=== PATIENT | female | born 1965 | race Caucasian/White ===

== ENCOUNTER 2017-03-30 14:14 | Emergency (ER) | payer BC ==
[~2017-03-30] VITALS: Ht 154.9 cm; Wt 73.2 kg
[2017-03-30 15:19] LABS: HEMATOCRIT 41.4 % (36.0-46.0); HEMOGLOBIN 13.7 G/DL (11.9-15.5); MCH 31.1 PG (29.0-34.0); MCHC 33.1 G/DL (30.0-36.0); MCV 94.1 FL (83-99); PLATELET COUNT 671 K/uL (156-360); RBC DIS.WIDTH-CV 14.1 % (11.8-14.6); RBC DIS.WIDTH-SD 49.2 % (39-53); WHITE BLOOD COUNT 13.8 K/uL (4.1-10.2)
[2017-03-30 15:31] LABS: CHLORIDE 107 mEq/L (99-109); POTASSIUM 4.8 mEq/L (3.7-5.4); SODIUM 142 mEq/L (136-147)
[2017-03-30 15:33] LABS: GLUCOSE 179 mg/dL (70-99)
[2017-03-30 15:36] LABS: CREATININE 0.8 mg/dL (0.6-1.3); GFR ESTIMATE (CALCULATED) > 59 mL/min/
[2017-03-30 15:37] LABS: UREA NITROGEN (BUN) 16 mg/dL (9-23)
[2017-03-30 15:40] LABS: TROP-I INTERPRETATION NEGATIVE; TROPONIN-I < 0.01 ng/mL (0.0-0.30)
[2017-03-30 17:11] LABS: ALBUMIN 4.2 g/dL (3.2-4.8)
[2017-03-30 17:14] LABS: TOTAL PROTEIN 7.6 g/dL (6.4-8.3)
[2017-03-30 17:16] LABS: TOTAL BILIRUBIN 0.2 mg/dL (0.0-1.0)
[2017-03-30 17:17] LABS: ALKALINE PHOSPHATASE 73 IU/L (3-129)
[2017-03-30 17:20] LABS: ALT (GPT) 20 IU/L (3-49); AST (GOT) 21 IU/L (2-34); DIRECT BILIRUBIN 0.1 mg/dL (0.0-0.3)
[2017-03-30 17:21] LABS: LIPASE 22 U/L (1.0-51.0)
[2017-03-30 17:42] LABS: D-DIMER ELISA < 150.00 ng/mLDDU (<230)
[2017-03-30 18:03] LABS: TROP-I INTERPRETATION NEGATIVE; TROPONIN-I < 0.01 ng/mL (0.0-0.30)
[2017-03-30] MEDS ORDERED: LIDODERM 5% P1 PATCH TD (18:21)
[2017-03-30] MEDS ORDERED: NORCO 5/3251 TABLET PO (18:21)
[2017-03-30 18:34] VITALS: BP 114/77
== END 2017-03-30 18:36 | disposition home or self-care (01) ==
LOC: EME 14:14
PROVIDERS: Nurse Practitioner Family
DX: M54.9 Dorsalgia, unspecified (principal); M79.1 Myalgia; D69.6 Thrombocytopenia, unspecified; Z88.0 Allergy status to penicillin
CPT/HCPCS: 71046; 80048; 80076; 83690; 84484; 85027; 85379; 93005; 99281; 99284; J1885